=== PATIENT | male | born 1950 ===

== ENCOUNTER 2020-11-14 17:53 | Outpatient (CLI) | payer OTHER ==
[2020-11-14 18:43] LABS: PLATELET COUNT 156 K/uL (142-355)
[2020-11-14 19:05] LABS: POTASSIUM 4.3 mmol/L (3.6-5.2)
== END 2020-11-14 21:20 | disposition home or self-care (01) ==
LOC: LAB 17:53
PROVIDERS: ATTEND Nurse Practitioner Family
DX: Z00.00 Encounter for general adult medical examination without abnormal findings (principal); R60.0 Localized edema; R06.02 Shortness of breath; R00.2 Palpitations; R53.83 Other fatigue; R53.81 Other malaise; E55.9 Vitamin D deficiency, unspecified; Z12.5 Encounter for screening for malignant neoplasm of prostate
CPT/HCPCS: 80053; 80061; 82306; 82607; 83036; 83880; 84153; 84403; 84443; 85027